=== PATIENT | male | born 1950 | race Caucasian/White ===

== ENCOUNTER 2019-01-24 13:27 | Emergency (ER) | payer OTHER | END 2019-01-24 14:10 | disposition home or self-care (01) | LOC: MADERS 13:27 | DX: S91.002A Unspecified open wound, left ankle, initial encounter (principal); S91.012A Laceration without foreign body, left ankle, initial encounter; Z79.899 Other long term (current) drug therapy; X58.XXXA Exposure to other specified factors, initial encounter | CPT/HCPCS: 99284 ==